=== PATIENT | female | born 2005 | race Caucasian/White ===

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

== ENCOUNTER 2023-02-02 10:26 | Emergency (ER) | payer OTHER, SELFPAY ==
[2023-02-02 10:38] VITALS: BP 139/77; PULSE 91; RESP 16; TEMP 36.6; O2SAT 100
--- NOTE | 2023-02-02 11:17 | ED.EAR ---
HPI - Ear Problem General Chief complaint: Ear Stated complaint: lt ear pain/ hearing loss Time Seen by Provider: 02/02/23 11:18 Source: patient, RN notes reviewed and old records reviewed Mode of arrival: ambulatory Limitations: no limitations History of Present Illness HPI Narrative: 17 year old female who presents to [facility] with complaints of left ear pain since Thursday. Patient reports that her hearing is decreased to her left ear and she has had some sinus drainage. Patient reports that mother helped her use some generic ear wax removal drops with some hard wax removed. Patient reports no cough, headache pain or any sore throat. MD Complaint: ear pain Location: left ear Duration: constant Severity: mild Discharge from ear: Reports no Treatment prior to arrival: other (sinus med) Related Data Home Medications Medication Instructions Recorded Confirmed levonorgestrel 0.15 mg-ethinyl 1 tablet PO DAILY 10/02/22 02/02/23 estradiol 30 mcg tablets,3 mos pack(91) atomoxetine 40 mg capsule 80 mg PO DAILY 02/02/23 02/02/23 Allergies Allergy/AdvReac Type Severity Reaction Status Date / Time Sulfa (Sulfonamide Allergy Mild RASH Verified 02/02/23 11:11 Antibiotics) Review of Systems Review of Systems: CONSTITUTIONAL: Denies malaise, chills, sweats, or fever. EYES: Denies visual changes, redness, or discharge. ENT: Reports rhinorrhea, congestion,no sinus pain, left otalgia denies sore throat. CARDIOVASCULAR: Denies chest pain, palpitations, or edema. RESPIRATORY: Reports no cough.? Denies dyspnea. GASTROINTESTINAL: Denies abdominal pain, nausea, vomiting, diarrhea SKIN: Denies rash or itching. MUSCULOSKELETAL: Denies myalgia. NEUROLOGIC: Denies headache. All systems reviewed & are unremarkable except as noted in HPI and below PMFSH Past Medical History Medical History ADHD (attention deficit hyperactivity disorder) Obesity Surgical History Surgical History History of dental surgery Hx laparoscopic cholecystectomy Family History Family History Father Alive and well Mother Alive and well Grandparent Breast cancer Social History Social History Smoking status: Never smoker Second hand tobacco smoke exposure: No Alcohol intake: never Substance use: never Lack of Transportation: No Lack of Food: Never True Current Housing: I Have Housing Concerned About Future Housing: No Difficulty Paying Gas/Electric Bills: No Difficulty Paying for Meds: No Currently Unemployed: No Education: High School Diploma/GED Difficulty w/ Childcare or Family Care: No Living arrangements: with family Occupation/Education: student Gender identity (if verbalized by the patient): Female Spiritual care concerns: No Comments At time of signature, agree with nursing past medical, surgical, social and family history. There is no relevant family history pertinent to the presenting complaint Exam Narrative: GENERAL: Well-appearing, well-nourished, and in no acute distress. HEAD: Normocephalic EYES: PERRLA, conjunctivae clear ENT: Nares clear, turbinates edematous and erythematous, clear discharge. Mucous membranes moist.Left TM red and bulging, Right TM pearly oleary with dull light reflex bilaterally; no tragal tenderness. Oropharynx erythematous without lesions. Tonsils not present, throat without exudate, no drooling, no hoarseness, no trismus, uvula midline.some post nasal drainage. NECK: Supple. No lymphadenopathy CHEST: Clear to auscultation, breath sounds equal. No wheezing, rhonchi, rales, or stridor. No respiratory distress, speaks in full sentences. SAO2 100% on room air HEART: Regular rate and rhythm. No murmur heard. SKIN: Warm, dry, n
== END 2023-02-02 11:36 | disposition home or self-care (01) ==
PROVIDERS: Emergency Provider Registered Nurse; PCP Family Medicine
DX: H66.92 Otitis media, unspecified, left ear (principal)
CPT/HCPCS: 99213; G0463

== ENCOUNTER 2025-01-29 14:13 | Emergency (ER) | payer OTHER, SELFPAY ==
[2025-01-29 14:15] VITALS: BP 159/108; PULSE 113; RESP 18; TEMP 36.6; O2SAT 99
[2025-01-29] MEDS: HYDROcodone/acetaminophen (*CRX) 5-325 MG TABLET 1 TAB PO (14:52)
[2025-01-29] MEDS: AMOXICILLIN/CLAVULANATE K 875-125 MG TAB 1 TABLET PO (14:52)
--- NOTE | 2025-01-29 14:57 | ED.GENADULT ---
HPI - General Adult General Chief complaint: Animal Bite Stated complaint: cat bite Time Seen by Provider: 01/29/25 14:34 History of Present Illness HPI narrative: Patient is a 19-year-old female who presents ER after having her finger bit by her Susy garay feline. It bit the 3rd digit at the middle phalanx near the D IP. Normal range of motion but has developed some swelling. This occurred in the last hour. Patient's tetanus shot is up-to-date. The cat's immunizations are up-to-date. It was unprovoked as they were playing and then her mouth got caught on the patient's finger. No numbness or tingling. There is throbbing pain. Related Data Home Medications ?Medication ?Instructions ?Recorded ?Confirmed ?Last Taken ?Type levonorgestrel 0.15 mg-ethinyl 1 tablet PO DAILY 10/02/22 02/18/23 Unknown History estradiol 30 mcg tablets,3 mos pack(91) Allergies Allergy/AdvReac Type Severity Reaction Status Date / Time Sulfa (Sulfonamide Allergy Mild RASH Verified 01/29/25 14:16 Antibiotics) Review of Systems Constitutional: Constitutional: Reports no additional constitutional complaints Musculoskeletal: Musculoskeletal: Reports no additional musculoskeletal complaints Integumentary/Breasts: Skin/Breast: Reports system reviewed and no additional complaints, except as docu PMFSH Past Medical History Medical History ADHD (attention deficit hyperactivity disorder) Obesity Surgical History Surgical History History of dental surgery Hx laparoscopic cholecystectomy Family History Family History Father Alive and well Mother Alive and well Grandparent Breast cancer Social History Social History Smoking status: Never smoker Second hand tobacco smoke exposure: No Alcohol intake: never Substance use: never Lack of Transportation: No Lack of Food: Never True Current Housing: I Have Housing Concerned About Future Housing: No Difficulty Paying Gas/Electric Bills: No Difficulty Paying for Meds: No Currently Unemployed: No Education: High School Diploma/GED Difficulty w/ Childcare or Family Care: No Living arrangements: with family Occupation/Education: student Gender identity (if verbalized by the patient): Female Spiritual care concerns: No Exam Narrative: GENERAL: Well-appearing, well-nourished, and in no acute distress. HEAD: Normocephalic, atraumatic. ENT: Mucous membranes moist.. HEART: Regular rate and rhythm. Normal peripheral pulses. EXTREMITIES: Mild range of motion discomfort right 3rd digit due to bite injury. The affected digit is neurovascularly intact. SKIN: Warm, dry, no rash. Puncture wound to the palmar and dorsal aspect of the 3rd digit of the right hand near the D IP with mild swelling over the middle phalanx. NEURO: Alert and oriented x3. PSYCH: Normal mood and affect. Course Course Emergency Course: Augmentin and Hibernia here. Discharged with same prescriptions as well as some anti-inflammatories that she has at home. Discussed return precautions. Vital Signs Vital signs: Vital Signs Temperature 97.8 F 01/29/25 14:15 Pulse Rate 113 H 01/29/25 14:15 Respiratory Rate 18 01/29/25 14:15 Blood Pressure 159/108 H 01/29/25 14:15 Pulse Oximetry 99 01/29/25 14:15 Oxygen Delivery Room Air 01/29/25 14:15 Temperature 97.8 F 01/29/25 14:15 Pulse Rate 113 H 01/29/25 14:15 Respiratory Rate 18 01/29/25 14:15 Blood Pressure 159/108 H 01/29/25 14:15 Pulse Oximetry 99 01/29/25 14:15 Oxygen Delivery Room Air 01/29/25 14:15 Medical Decision Making Vital Signs Vital Signs: Vital Signs Temperature 97.8 F 01/29/25 14:15 Pulse Rate 113 H 01/29/25 14:15 Respiratory Rate 18 01/29/25 14:15 Blood Pressure 159/108 H 01/29/25 14:15 Pulse Oximetry 99 01/29/25 14:15 Oxygen Delivery Room Air 01/29/25 14:15 Temperature 97.8 F 01/29/25 14:15 Pulse Rate 113 H 01/29/25 14:15 Respiratory Rate 18 01/29/25 14:15 Blood Pressure 159/108 H 01/29/25 14:15 Pulse Oximetry 99 01/29/25 14:15 Oxygen Delivery Room Air 01/29/25 14:15 Imaging Data Radiologist's impression: ITS Impressions Finger X-Ray 01/29/25 15:12 IMPRESSION: No acute osseous abnormality. Discharge Plan Discharge Clinical Impression: Cat bite of finger Patient Disposition: Home, Self-Care Condition: Stable Instructions: Animal Bite (ED) Additional Instructions: Take the full course of antibiotics. Return the ER if your fingers draining pus, you have redness streaking up your arm, or you have fever over 100.4? F. Patient Language: Marshallese Prescriptions: New hydrocodone-acetaminophen 5-325 mg tablet 1 tablet PO Q6H PRN (Reason: pain) Qty: 6 0RF amoxicillin-pot clavulanate 875-125 mg tablet 1 tablet PO Q12H Qty: 20 0RF No Action levonorgestrel-ethinyl estrad 0.15 mg-30 mcg (91) tablets,dose pack,3 month 1 tablet PO DAILY Vyvanse 30 mg capsule 30 mg PO BID Qty: 60 0RF Follow-up/Referrals: Zayda,Justino Rene DO [Primary Care Provider] - 1 Week
[2025-01-29 15:48] VITALS: BP 150/87; PULSE 102; RESP 16; O2SAT 96
== END 2025-01-29 15:58 | disposition home or self-care (01) ==
PROVIDERS: Emergency Provider Emergency Medicine; PCP Family Medicine
DX: S61.252A Open bite of right middle finger without damage to nail, initial encounter (principal); Z90.49 Acquired absence of other specified parts of digestive tract; W55.01XA Bitten by cat, initial encounter
CPT/HCPCS: 73140; 99283; A9270